=== PATIENT | female | born 1985 | race Caucasian/White ===

== ENCOUNTER 2016-11-24 20:04 | Emergency (ER) | payer MEDICARE, BC ==
[~2016-11-24] VITALS: Ht 160 cm; Wt 73.5 kg
[~2016-11-24 20:04] MED LIST: LORA-401
[2016-11-24 20:10] VITALS: Ht 160 cm; Wt 73.5 kg
[2016-11-24] MEDS ORDERED: ALPR0.5T PO (23:09)
--- NOTE | 2016-11-24 23:15 | ERD ---
ER Documentation Chief Complaint Date/Time DATE: 11/24/16 TIME: 23:09 Chief Complaint bib ambulance, anxiety- upset w/ her uncle PT IS DEAF HPI Patient is a 30-year-old female with past medical history of anxiety and depression BIB medics who presents to the emergency department with a chief complaint of "anxiety since yesterday." Patient states that she has been in numerous fights with her grandfather and that is causing her a lot of stress. Patient states that yesterday she woke up 3 times during the night due to her heart racing. She states that she feels "panic." Patient states that her palpitations are episodic in nature. She also reports some chest discomfort, but denies any chest pain. She denies any arm pain, shoulder pain, diaphoresis. Patient states that she does have some difficulty breathing secondary to palpitations. Patient denies any fevers, chills, nausea, vomiting, abdominal pain, pain with urination. LMP= 1 week ago. She denies any history of DVTs, recent surgeries, prolonged sitting, recent travel or estrogen use. Of note, patient is deaf. A mechanical design drafter was used throughout the encounter. bookkeepers supervisor= Kaitlynn. ROS All systems reviewed and are negative except as per history of present illness. Medications Home Meds Active Scripts Alprazolam* (Xanax*) 0.5 Mg Tab, 0.5 MG PO Q8H Y for ANXIETY, #10 TAB Prov:SHARON WOODSON PA-C 11/24/16 Reported Medications Lorazepam* (Ativan*) 1 Mg Tablet 09/07/13 Allergies Allergies: Coded Allergies: No Known Allergy (Unverified , 09/07/13) PMhx/Soc History of Surgery: Yes (HEART SURG AT AGE 9) Anesthesia Reaction: No Hx Neurological Disorder: No (PT IS DEAF) Hx Respiratory Disorders: No Hx Cardiac Disorders: Yes (HEART SURG) Hx Psychiatric Problems: Yes (ANXIETY) Hx Miscellaneous Medical Probl: No Hx Alcohol Use: No Hx Substance Use: No Hx Tobacco Use: No FmHx Family History: No diabetes Physical Exam Vitals Vital Signs Date Time Temp Pulse Resp B/P Pulse Ox O2 Delivery O2 Flow Rate FiO2 11/25/16 01:19 98.0 100 18 120/65 100 Room Air 11/24/16 20:10 98.3 70 20 124/66 98 Physical Exam GENERAL: Well-developed, well-nourished deaf female. Appears in no acute distress. Communicates by sign language. HEAD: Normocephalic, atraumatic. No deformities or ecchymosis. EYE: Pupils equal, round, and reactive to light. EOMs intact. No conjunctival erythema. No scleral icterus. No eye discharge. ENT: External ear without any masses or tenderness. Auditory canals clear bilaterally. TM visualized bilaterally, non-erythematous, non-bulging. Nasal mucosa pink with no discharge. Oropharynx is pink without any tonsillar erythema or exudates. No uvula deviation. No kissing tonsils. NECK: Supple. No lymphadenopathy or thyromegaly. No meningismus. Trachea midline. LUNG: Clear to auscultation bilaterally. No rhonchi, wheezing, rales or coarse breath sounds. HEART: Regular rate and rhythm. No murmurs, rubs or gallops. ABDOMEN: Soft, nontender, and nondistended. Positive bowel sounds in all four quadrants. No rebound tenderness, no guarding. (-) McBurney's point tenderness. No CVA tenderness. BACK: No midline tenderness. EXTREMITIES: Equal pulses bilaterally. No peripheral clubbing, cyanosis or edema. No unilateral leg swelling. NEUROLOGIC: Alert and oriented. Moving all four extremities. 5/5 strength in all extremities. Steady gait. . SKIN: Normal color. Warm and dry. No rashes or lesions. Procedures/MDM ED COURSE: The patient was stable throughout ED course. I kept the patient and/or family informed of laboratory and diagnostic imaging results throughout the ED course. EKG: Read by Dr. Whitehead, attending physician. EKG shows normal sinus rhythm at a rate of 71. No arrhythmias, acute ST elevations or T wave changes were noted. Possible right ventricular conduction delay. DIAGNOSTIC IMAGING: Read by radiologist. [place] [id number] Radiology Main Line: [phone] DIAGNOSTIC IMAGING REPORT Patient: ZAHRA FARMER : 1985 Age: 30 Sex: F MR #: [id number] DOS: 11/24/16 2303 Ordering MD: SHARON WOODSON PA-C Location: [facility] Room/Bed: PROCEDURE: CHEST - 1 VIEW CLINICAL INDICATION: 30-year-old female with chest pain. TECHNIQUE: A single frontal AP upright view of the chest was performed portably. The images were reviewed on a PACS workstation. COMPARISON: Chest x-ray August 02, 2013. FINDINGS: The patient has had a prior median sternotomy. The cardiomediastinal silhouette is enlarged but without significant interval change. There appears to be a PDA clip present.. There is no evidence for an infiltrate. There is no evidence for congestive heart failure. There is no evidence for pneumothorax. The osseous structures are intact. IMPRESSION: 1. Status post median sternotomy. 2. Cardiomegaly. .Jonah Berman MD, MD Date Time Electronically viewed and signed by .Jonah Berman MD, MD on 11/25/2016 00:09 .M/ CC: SHARON WOODSON PA-C MEDICAL DECISION MAKING: This is a 30-year-old female who presents with concerns of "anxiety" and palpitations. Patient states that symptoms started yesterday. Patient is deaf and a mechanical design drafter was used throughout the encounter. Patient denied any leg swelling, recent surgeries, travel, exogenous estrogen use. Vital signs were reviewed. Patient was afebrile. Patient was not hypoxic. Cardiac exam was normal. Lung exam was normal. EKG was within normal limits. Low suspicion for acute coronary syndrome, arrhythmia or pericarditis. CXR showed status post median sternotomy and Cardiomegaly.Low suspicion for congestive heart failure, pneumothorax, pneumonia or pleural effusion. PERC score was calculated to be 0. Low suspicion for PE. Given these findings, the patients presentation is most consistent with palpitations secondary to anxiety. PRESCRIPTIONS: Xanax 0.5 mg, 10 tabs, 0 refills DISCHARGE: At this time, patient is stable for discharge and outpatient management. I have instructed the patient to follow-up with his/her primary care physician in 1-2 days. If symptoms persist, patient may need to see a torch straightener for further examinations and testing including stress test, 24 hour holter monitoring. I have instructed the patient to promptly return to the ER at any time for any new or worsening symptoms including increased increased pain, fever, nausea, vomiting, numbness, weakness, diaphoresis or LOC. The patient and/or family expressed understanding of and agreement with this plan. All questions were answered. Home care instructions were provided. Departure Diagnosis: Primary Impression: Palpitations Condition: Stable Patient Instructions: Your Body's Response to Anxiety, Palpitations Additional Instructions: Call your primary care doctor TOMORROW for an appointment during the next 1-2 days.See the doctor sooner or return here if your condition worsens before your appointment time. Patient may need to see a torch straightener for further management and workup of her symptoms. 24 hour Holter monitoring advised. SHARON WOODSON PA-C Nov 24, 2016 23:15
--- NOTE | 2016-11-25 00:10 | RADRPT ---
PROCEDURE: CHEST - 1 VIEW CLINICAL INDICATION: 30-year-old female with chest pain. TECHNIQUE: A single frontal AP upright view of the chest was performed portably. The images were reviewed on a PACS workstation. COMPARISON: Chest x-ray August 02, 2013. FINDINGS: The patient has had a prior median sternotomy. The cardiomediastinal silhouette is enlarged but wit hout significant interval change. There appears to be a PDA clip present.. There is no evidence fo r an infiltrate. There is no evidence for congestive heart failure. There is no evidence for pneumo thorax. The osseous structures are intact. IMPRESSION: 1. Status post median sternotomy. 2. Cardiomegaly. .Jonah Berman MD, MD Date Time Electronically viewed and signed by .Jonah Berman MD, on 11/25/2016 00:09 .M/
[2016-11-25 01:19] VITALS: BP 120/65; PULSE 100; RESP 18; TEMP 98
== END 2016-11-25 01:24 | disposition home or self-care (01) ==
LOC: FTE 20:04
DX: R00.2 Palpitations (principal)
CPT/HCPCS: 71010; 93005